=== PATIENT | female | born 1970 | race African-American/Black ===

== ENCOUNTER 2020-06-26 22:16 | Inpatient (IN) ==
[2020-06-27] MEDS ORDERED: PROMETHAZINE 25 MG/1 ML VIAL IM PRN (00:16)
[2020-06-27] MEDS ORDERED: ONDANSETRON 4 MG/2 ML VIAL IV PRN (00:16)
[2020-06-27] MEDS ORDERED: ALBUTEROL 2.5 MG/3 ML NEB RESP TX PRN (00:16)
[2020-06-27 00:36] LABS: ABG HCO3 20.3 MMOL/L (20-26); ABG Oxygen Saturation 98.5 % (95-100); ABG PH 7.323 (7.35-7.45); ABG TCO2 18.5 MMOL/L (23-27)
[2020-06-27 00:37] LABS: Basophils # 0.1 10*3/uL (0.0-0.2); Basophils % 0.3 % (0.0-0.8); Eosinophils % 0.2 % (0.00-10.9); Hematocrit 38.4 VOL% (35.7-47.0); Hemoglobin 12.2 GM/DL (12.0-16.0); Immature Granulocytes % 1.5 %; Immature Granulocytes Absolute 0.28 #; Lymphocytes # 1.8 10*3/uL (1.4-4.0); Lymphocytes % 9.4 % (21.3-54.2); Mean Corpuscular HGB Conc 31.8 GM/DL (32-36); Mean Corpuscular Volume 96.5 FL (87-102); Mean Platelet Volume 10.4 FL (9.6-12.0); Monocytes % 3.3 % (1.7-12.7); Neutrophils % 85.3 % (38.7-73.9); Platelet Count 434 T/CUMM (130-400); Red Blood Count 3.98 MC/CUMM (3.8-5.5); Red Cell Distribution Width 14.5 % (9.3-17.3)
[2020-06-27] MEDS ORDERED: NOREPINEPHRINE 8 MG in SODIUM CHLORIDE 0.9% 242 ML IV PRN (00:40)
[2020-06-27 00:54] LABS: Albumin 3.3 G/DL (3.4-5.0); Bilirubin,Total 0.5 MG/DL (0.2-1.0); Calcium 8.1 MG/DL (8.5-10.1); Osmolality,Calculated 283.8 MOS/KG (273-304); Total Protein 7.2 G/DL (6.4-8.3)
[2020-06-27 00:55] LABS: PT Patient Result 10.8 SECS (9.8-11.9)
[2020-06-27] MEDS: LACTATED RINGERS 1,000 ML IV SCH ×3 (01:24→16:43)
[2020-06-27] MEDS: LEVOFLOXACIN INJ 750 MG in PREMIX 1 EACH IV SCH (01:26)
[2020-06-27] MEDS: methylPREDNISolone SOD SUC 125 MG/2 ML VIAL IV SCH ×3 (01:26→17:42)
[2020-06-27 02:57] LABS: Bilirubin,Urine Negative (Negative); Blood, Urine Small mg/dL (Negative); Glucose,Urine (UA) Negative (Negative); Hyaline Casts,Urine 19 /LPF (0-3); Ketones,Urine Negative (Negative); Mucus,Urine Occasional /LPF (Occasional); Nitrite,Urine Negative (Negative); Protein,Urine 30 MG/DL; RBC,Urine 1 /HPF (0-4); Urine Appearance CLEAR (Clear); Urine Color Yellow (Yellow); Urine Urobilinogen < 2.0 EU/DL (0.2-1.0); WBC,Urine 2 /HPF (0-6)
[2020-06-27 04:11] LABS: ABG Base Excess -4.1 MMOL/L (-2.5-2.5); ABG HCO3 20.3 MMOL/L (20-26); ABG Oxygen Saturation 99.5 % (95-100); ABG PH 7.381 (7.35-7.45); ABG PO2 273.1 MM HG (80-95); ABG TCO2 21.4 MMOL/L (23-27)
[2020-06-27 04:28] LABS: Basophils % 0.3 % (0.0-0.8); Eosinophils % 0.1 % (0.00-10.9); Hematocrit 37.1 VOL% (35.7-47.0); Hemoglobin 11.7 GM/DL (12.0-16.0); Immature Granulocytes % 0.7 %; Immature Granulocytes Absolute 0.07 #; Lymphocytes # 0.9 10*3/uL (1.4-4.0); Lymphocytes % 8.4 % (21.3-54.2); Mean Corpuscular HGB Conc 31.5 GM/DL (32-36); Mean Corpuscular Volume 97.1 FL (87-102); Mean Platelet Volume 10.5 FL (9.6-12.0); Monocytes % 2.1 % (1.7-12.7); Neutrophils % 88.4 % (38.7-73.9); Platelet Count 322 T/CUMM (130-400); Red Blood Count 3.82 MC/CUMM (3.8-5.5); Red Cell Distribution Width 14.3 % (9.3-17.3); White Blood Count 10.4 T/CUMM (4-12)
[2020-06-27 04:52] LABS: Albumin 3.2 G/DL (3.4-5.0); Bilirubin,Total 0.6 MG/DL (0.2-1.0); Calcium 8.5 MG/DL (8.5-10.1); Osmolality,Calculated 283.7 MOS/KG (273-304)
[2020-06-27] MEDS: ENOXAPARIN 40 MG/0.4 ML SYRINGE SUBCUT SCH (08:20)
[2020-06-27] MEDS: PANTOPRAZOLE 40 MG VIAL IV SCH (08:20)
[2020-06-27] MEDS ORDERED: GLUCAGON 1 MG VIAL IM PRN (12:00)
[2020-06-27] MEDS ORDERED: DEXTROSE 50% 25 GM/50 ML VIAL IV PRN (12:00)
[2020-06-27] MEDS: INSULIN REGULAR 100 UNIT/ML SUBCUT SCH ×3 (12:39→23:42)
[2020-06-27] MEDS: ALBUTEROL 2.5 MG/3 ML NEB RESP TX SCH (20:50)
[2020-06-28] MEDS: LACTATED RINGERS 1,000 ML IV SCH ×2 (00:43→09:18)
[2020-06-28] MEDS: LEVOFLOXACIN INJ 750 MG in PREMIX 1 EACH IV SCH (01:35)
[2020-06-28] MEDS: methylPREDNISolone SOD SUC 125 MG/2 ML VIAL IV SCH ×3 (01:35→18:05)
[2020-06-28] MEDS: ALBUTEROL 2.5 MG/3 ML NEB RESP TX SCH ×4 (01:40→20:13)
[2020-06-28 04:58] LABS: ABG Base Excess -0.4 MMOL/L (-2.5-2.5); ABG HCO3 24.1 MMOL/L (20-26); ABG Oxygen Saturation 99.8 % (95-100); ABG PCO2 38.9 MM HG (35-48); ABG PH 7.402 (7.35-7.45); ABG TCO2 21.6 MMOL/L (23-27)
[2020-06-28 05:09] LABS: Basophils % 0.1 % (0.0-0.8); Hematocrit 35.9 VOL% (35.7-47.0); Hemoglobin 11.4 GM/DL (12.0-16.0); Immature Granulocytes % 0.5 %; Immature Granulocytes Absolute 0.08 #; Lymphocytes # 0.9 10*3/uL (1.4-4.0); Lymphocytes % 6.1 % (21.3-54.2); Mean Corpuscular HGB Conc 31.8 GM/DL (32-36); Mean Corpuscular Volume 97.3 FL (87-102); Mean Platelet Volume 10.6 FL (9.6-12.0); Monocytes % 3.3 % (1.7-12.7); Platelet Count 316 T/CUMM (130-400); Red Blood Count 3.69 MC/CUMM (3.8-5.5); Red Cell Distribution Width 14.7 % (9.3-17.3); White Blood Count 15.3 T/CUMM (4-12)
[2020-06-28 05:24] LABS: Calcium 8.9 MG/DL (8.5-10.1); Osmolality,Calculated 292.1 MOS/KG (273-304)
[2020-06-28] MEDS: INSULIN REGULAR 100 UNIT/ML SUBCUT SCH ×3 (06:21→17:00)
[2020-06-28] MEDS: ENOXAPARIN 40 MG/0.4 ML SYRINGE SUBCUT SCH (08:22)
[2020-06-28] MEDS: PANTOPRAZOLE 40 MG VIAL IV SCH (08:22)
[2020-06-28] MEDS: INSULIN GLARGINE 100 UNIT/ML SUBCUT SCH (09:18)
[2020-06-28] MEDS: amLODIPine 5 MG TABLET PO SCH (17:00)
[2020-06-29] MEDS: INSULIN REGULAR 100 UNIT/ML SUBCUT SCH ×5 (00:43→21:27)
[2020-06-29] MEDS: methylPREDNISolone SOD SUC 125 MG/2 ML VIAL IV SCH ×3 (01:41→16:51)
[2020-06-29] MEDS: LEVOFLOXACIN INJ 750 MG in PREMIX 1 EACH IV SCH (01:52)
[2020-06-29] MEDS: ALBUTEROL 2.5 MG/3 ML NEB RESP TX SCH ×4 (02:00→19:30)
[2020-06-29 04:43] LABS: Basophils % 0.1 % (0.0-0.8); Hematocrit 36.8 VOL% (35.7-47.0); Hemoglobin 11.3 GM/DL (12.0-16.0); Immature Granulocytes % 0.8 %; Immature Granulocytes Absolute 0.13 #; Lymphocytes % 6.1 % (21.3-54.2); Mean Corpuscular HGB Conc 30.7 GM/DL (32-36); Mean Corpuscular Volume 98.9 FL (87-102); Mean Platelet Volume 11.3 FL (9.6-12.0); Monocytes % 2.3 % (1.7-12.7); Neutrophils % 90.7 % (38.7-73.9); Platelet Count 317 T/CUMM (130-400); Red Blood Count 3.72 MC/CUMM (3.8-5.5); Red Cell Distribution Width 14.9 % (9.3-17.3); White Blood Count 15.6 T/CUMM (4-12)
[2020-06-29 05:03] LABS: Calcium 9.2 MG/DL (8.5-10.1)
[2020-06-29 05:20] LABS: Band Neutrophils 2 % (0-10); Lymphocytes 8 % (20-55); Platelet Estimate Normal; Segmented Neutrophils 87 % (50-85); Total Cells Counted 100
[2020-06-29 05:21] LABS: Anisocytosis 1+; Hypochromasia 2+; Macrocytosis 1+
[2020-06-29] MEDS: amLODIPine 5 MG TABLET PO SCH (09:11)
[2020-06-29] MEDS: PANTOPRAZOLE 40 MG VIAL IV SCH (09:11)
[2020-06-29] MEDS: ENOXAPARIN 40 MG/0.4 ML SYRINGE SUBCUT SCH (09:11)
[2020-06-29] MEDS: INSULIN GLARGINE 100 UNIT/ML SUBCUT SCH (09:13)
[2020-06-29] MEDS ORDERED: INFLUENZA VIRUS VACCINE 0.5 ML SYRINGE IM ONE (11:18)
[2020-06-29] MEDS ORDERED: amLODIPine 5 MG TABLET PO ONE (14:56)
[2020-06-29] MEDS ORDERED: hydrALAZINE 20 MG/1 ML VIAL IV PRN (14:57)
[2020-06-29] MEDS: BUDESONIDE/FORMOTEROL 160-4.5 INHALER 6 GM INH SCH (22:55)
[2020-06-30] MEDS: methylPREDNISolone SOD SUC 125 MG/2 ML VIAL IV SCH ×3 (01:04→17:35)
[2020-06-30] MEDS: ALBUTEROL 2.5 MG/3 ML NEB RESP TX SCH ×7 (02:09→23:40)
[2020-06-30] MEDS: LEVOFLOXACIN INJ 750 MG in PREMIX 1 EACH IV SCH (02:34)
[2020-06-30 06:58] LABS: Basophils % 0.2 % (0.0-0.8); Hematocrit 36.6 VOL% (35.7-47.0); Hemoglobin 11.5 GM/DL (12.0-16.0); Immature Granulocytes % 1.3 %; Immature Granulocytes Absolute 0.16 #; Lymphocytes % 8.3 % (21.3-54.2); Mean Corpuscular HGB Conc 31.4 GM/DL (32-36); Mean Corpuscular Volume 97.9 FL (87-102); Mean Platelet Volume 10.6 FL (9.6-12.0); Monocytes % 2.1 % (1.7-12.7); Neutrophils % 88.1 % (38.7-73.9); Platelet Count 282 T/CUMM (130-400); Red Blood Count 3.74 MC/CUMM (3.8-5.5); Red Cell Distribution Width 14.7 % (9.3-17.3); White Blood Count 12.2 T/CUMM (4-12)
[2020-06-30 07:37] LABS: Osmolality,Calculated 287.3 MOS/KG (273-304)
[2020-06-30] MEDS: INSULIN REGULAR 100 UNIT/ML SUBCUT SCH ×4 (09:01→21:42)
[2020-06-30] MEDS: PANTOPRAZOLE 40 MG VIAL IV SCH (09:02)
[2020-06-30] MEDS: INSULIN GLARGINE 100 UNIT/ML SUBCUT SCH (09:02)
[2020-06-30] MEDS: ENOXAPARIN 40 MG/0.4 ML SYRINGE SUBCUT SCH (09:02)
[2020-06-30] MEDS: amLODIPine 10 MG TABLET PO SCH (09:02)
[2020-06-30] MEDS: BUDESONIDE/FORMOTEROL 160-4.5 INHALER 6 GM INH SCH ×2 (09:15→21:43)
[2020-07-01] MEDS: methylPREDNISolone SOD SUC 125 MG/2 ML VIAL IV SCH ×2 (02:27→09:20)
[2020-07-01] MEDS: ALBUTEROL 2.5 MG/3 ML NEB RESP TX SCH ×3 (03:48→11:40)
[2020-07-01] MEDS: LEVOFLOXACIN INJ 750 MG in PREMIX 1 EACH IV SCH (04:39)
[2020-07-01 06:15] LABS: Basophils % 0.1 % (0.0-0.8); Hemoglobin 11.4 GM/DL (12.0-16.0); Immature Granulocytes % 1.9 %; Immature Granulocytes Absolute 0.23 #; Lymphocytes # 1.1 10*3/uL (1.4-4.0); Lymphocytes % 8.6 % (21.3-54.2); Mean Corpuscular HGB Conc 31.7 GM/DL (32-36); Mean Corpuscular Volume 97.3 FL (87-102); Monocytes % 4.9 % (1.7-12.7); NRBC # 0.02 10*3/uL; Neutrophils % 84.5 % (38.7-73.9); Platelet Count 264 T/CUMM (130-400); Red Cell Distribution Width 14.4 % (9.3-17.3); White Blood Count 12.3 T/CUMM (4-12)
[2020-07-01 06:32] LABS: Osmolality,Calculated 286.5 MOS/KG (273-304)
[2020-07-01] MEDS: INSULIN REGULAR 100 UNIT/ML SUBCUT SCH ×2 (09:19→14:55)
[2020-07-01] MEDS: INSULIN GLARGINE 100 UNIT/ML SUBCUT SCH (09:19)
[2020-07-01] MEDS: amLODIPine 10 MG TABLET PO SCH (09:21)
[2020-07-01] MEDS: ENOXAPARIN 40 MG/0.4 ML SYRINGE SUBCUT SCH (09:21)
[2020-07-01] MEDS: BUDESONIDE/FORMOTEROL 160-4.5 INHALER 6 GM INH SCH (09:27)
[2020-07-01] MEDS: PANTOPRAZOLE 40 MG VIAL IV SCH (09:27)
[2020-07-01 10:18] VITALS: BP 159/76
== END 2020-07-01 14:49 | disposition home or self-care (01) | DRG 141 ==
LOC: N.ICU 06-27 00:03 → SUATTDRO 06-27 00:03 → N.TELEN 06-29 14:52
PROVIDERS: ADMIT Internal Medicine; ATTEND Internal Medicine